=== PATIENT | female | born 1970 | race Caucasian/White ===

== ENCOUNTER 2016-04-17 17:11 | Emergency (ER) | payer MEDICAID ==
[2016-04-17 17:44] VITALS: BP 147/75; PULSE 88; RESP 16; TEMP 97.3; O2SAT 94
--- NOTE | 2016-04-17 18:00 | UCPHY ---
H & P Time Seen by Provider: 04/17/16 17:50 Patient Type: Established HPI/ROS: CHIEF COMPLAINT: Sore throat, cough, fever. HISTORY OF PRESENT ILLNESS: The patient is a 46-year-old female who presents with fever, cough, and sore throat for the past week. She admits associated eye itchiness and reports they are stuck together in the mornings when she wakes up. She has recent sick contact from family members and she did get her flu shot this year. She denies vomiting or other complaints. REVIEW OF SYSTEMS: Aside from elements discussed in the HPI, a comprehensive 10-point review of systems was reviewed and is negative. PAST MEDICAL HISTORY: Denies. SOCIAL HISTORY: Here alone. VITAL SIGNS: Reviewed by me GENERAL: Well-developed, well-nourished, resting comfortably in no respiratory distress. HEENT: Atraumatic. Eyes: No icterus, no injection. Mouth: moist mucous membranes. Oropharyngeal erythema right worse than left. No exudates. No erythema or lesions. Neck: supple with no adenopathy. LUNGS: Clear to auscultation bilaterally, no wheezes, rhonchi or rales. CARDIAC: Regular rate and rhythm, no rubs, murmurs or gallops. ABDOMEN: Soft, nontender, nondistended, bowel sounds normal. BACK: No CVA tenderness. EXTREMITIES: No trauma. No edema. Range of motion is normal throughout. NEURO: Alert and oriented, grossly nonfocal. SKIN: Warm and dry, no rash. PSYCHIATRIC: Normal mentation, no agitation. Portions of this note were transcribed by a medical typist. I personally performed a history, physical exam, medical decision making, and confirmed accuracy of information the transcribed note. Smoking Status: Never smoked Constitutional: Initial Vital Signs Temperature (C) 36.3 C 04/17/16 17:40 Heart Rate 88 04/17/16 17:40 Respiratory Rate 16 04/17/16 17:40 Blood Pressure 147/75 H 04/17/16 17:40 O2 Sat (%) 94 04/17/16 17:40 O2 Delivery Mode Room Air Allergies/Adverse Reactions: promethazine Allergy (Unknown, Verified 04/17/16 17:44) Home Medications: Medication Instructions Recorded Methotrexate Sodium [Methotrexate] 2.5 mg PO Q12 02/18/14 Enbrel 01/23/15 Amoxicillin Trihydrate 500 mg PO TID 7 Days 04/17/16 [Amoxicillin] Benzonatate [Tessalon Pearles (RX)] 100 mg PO TID PRN #20 cap 04/17/16 Citalopram 04/17/16 Medical Decision Making ED Course/Re-evaluation: A strep screen was ordered and returned positive. 8mg PO Decadron administered prior to discharge. - Data Points Laboratory Results: 04/17/16 17:50 Group A Strep Screen POSITIVE H (NEGATIVE) Departure - Departure Disposition: Home, Routine, Self-Care Clinical Impression: Strep throat Condition: Good Instructions: Strep Throat (ED) Additional Instructions: Take 600mg Ibuprofen every 6-8 hours as needed for pain. Try over the counter sore throat remedies such as lozenges. Take the antibiotic as prescribed. Drink plenty of water and be sure to get rest. Call Dr. Arechiga, ENT, in the next 3-4 days if symptoms are not improving. Return for any serious worsening of condition. Referrals: Francia Martinez CNM [Primary Care Provider] - As per Instructions Dany Arechiga MD [Medical Doctor] - As per Instructions Prescriptions: Amoxicillin Trihydrate [Amoxicillin] 500 mg PO TID 7 Days Benzonatate [Tessalon Pearles (RX)] 100 mg PO TID PRN #20 cap PRN Reason: Cough, Mild Report Scribed for: Ena Donohue Report Scribed by: Aly Sweeney Date of Report: 04/17/16 Time of Report: 17:59
[2016-04-17] MEDS ORDERED: DEXAMETHASONE 4 MG TAB PO ONE (18:13)
== END 2016-04-17 18:44 | disposition home or self-care (01) ==
LOC: CED 17:11
DX: J02.0 Streptococcal pharyngitis (principal)
CPT/HCPCS: 87880-PO; G0463-PO

== ENCOUNTER 2016-08-08 15:35 | Emergency (ER) | payer MEDICAID ==
[2016-08-08 15:59] VITALS: BP 135/62; PULSE 74; RESP 18; TEMP 98; O2SAT 97
[2016-08-08] MEDS ORDERED: DEXAMETHASONE 10 MG/ML VIAL PO ONE (16:15)
--- NOTE | 2016-08-08 16:19 | UCPHY ---
H & P Time Seen by Provider: 08/08/16 15:43 Patient Type: Established HPI/ROS: 46-year-old female presents complaining of sore throat for 2 days dates she has also had some cold symptoms and several people in her family have also had sore throats cough and cold. She is able to swallow her own secretions she states she had a Gatorade just prior to arrival. Review of systems As per HPI General no fever no chills no weakness HEENT no eye pain no eye discharge. No eye redness, positive sore throat Respiratory no cough, no shortness of breath Cardiac no chest pain, no peripheral edema GI no abdominal pain, no diarrhea, no constipation, no nausea, no vomiting no flank pain, no hematuria, no dysuria Musculoskeletal no myalgias, no joint pain Heme no easy bruising, no easy bleeding Endo no polyuria, no polydipsia Skin no rashes, no pruritus Neuro no syncope, no dizziness, no headaches Psych is no suicidal ideation, no homicidal ideation Past Medical/Surgical History: Depression Rheumatoid arthritis Social History: Denies alcohol or drug use Smoking Status: Never smoked Physical Exam: 46-year-old female alert and oriented no acute distress nontoxic appearance afebrile Normal voice, tolerating own secretions Alert and oriented in no acute distress nontoxic appearance, afebrile Atraumatic normocephalic Extraocular muscles intact, anicteric Neck-supple, positive anterior cervical lymphadenopathy mildly tender to palpation Oropharynx positive enlarged tonsils, erythematous, no uvular deviation, no purulent exudate, tolerating own secretions, no trismus Lungs clear to auscultation bilaterally Heart regular rate and rhythm Abdomen normoactive bowel sounds soft nontender Extremities no cyanosis clubbing edema Skin no rash Constitutional: Initial Vital Signs Temperature (C) 36.6 C 08/08/16 15:58 Heart Rate 74 08/08/16 15:58 Respiratory Rate 18 08/08/16 15:58 Blood Pressure 135/62 H 08/08/16 15:58 O2 Sat (%) 97 08/08/16 15:58 O2 Delivery Mode Room Air Allergies/Adverse Reactions: promethazine Allergy (Unknown, Verified 04/17/16 17:44) Home Medications: Medication Instructions Recorded Methotrexate Sodium [Methotrexate] 2.5 mg PO Q12 02/18/14 Enbrel 01/23/15 Amoxicillin Trihydrate 500 mg PO TID 7 Days 04/17/16 [Amoxicillin] Benzonatate [Tessalon Pearles (RX)] 100 mg PO TID PRN #20 cap 04/17/16 Citalopram 04/17/16 Clindamycin HCl [Clindamycin] 300 mg PO TID #30 cap 08/08/16 Medical Decision Making ED Course/Re-evaluation: Patient seen and evaluated for sore throat of 2 days duration Differential diagnosis considered Viral pharyngitis, URI, strep pharyngitis Impression Pharyngitis possibly strep Plan Clindamycin Decadron Follow-up PCP - Data Points Laboratory Results: 08/08/16 08/08/16 Unknown 15:50 Group A Strep Screen NEGATIVE (NEGATIVE) Group A Strep DNA Pending Medications Given: Discontinued Medications Dexamethasone (Decadron Injection) 10 mg PO EDNOW ONE Stop: 08/08/16 16:16 Last Admin: 08/08/16 16:27 Dose: 10 mg Departure - Departure Disposition: Home, Routine, Self-Care Clinical Impression: Pharyngitis Condition: Good Instructions: Pharyngitis (ED) Referrals: Francia Martinez NP [Primary Care Provider] - As per Instructions Prescriptions: Clindamycin HCl [Clindamycin] 300 mg PO TID #30 cap - PQRS PQRS Measurement: na
== END 2016-08-08 16:27 | disposition home or self-care (01) ==
LOC: CED 15:35
DX: J02.9 Acute pharyngitis, unspecified (principal)
CPT/HCPCS: 87880-PO; 99214-PO; G0463-PO

== ENCOUNTER 2016-09-06 06:41 | Emergency (ER) | payer MEDICAID ==
[2016-09-06 06:50] VITALS: O2SAT 98
--- NOTE | 2016-09-06 07:21 | EDPHY ---
H & P Time Seen by Provider: 09/06/16 07:09 HPI/ROS: Chief complaint. Can't sleep, anxiety HPI. Patient is a 46-year-old female with history anxiety presents with anxiety he and difficulty sleeping. She has a sick father who lives in [place]. She is concerned about him. She gets too bad and maybe falls asleep for about 10 minutes and then she is awake and thoughts are racing through her mind. She is not ill. No chest discomfort or trouble breathing. No fever. No thoughts of harming herself or others. She has had similar anxiety and insomnia symptoms previously. She has been unable to sleep for the past 4 days because of anxiety ROS Constitutional. no fever/chills, no weakness Eyes. no problems with vision ENT. no sore throat, no nasal drainage Cardiovascular. no chest pain Respiratory. no shortness of breath, no cough Abdominal. no abdominal pain, no nausea/vomiting, no diarrhea . no problems urinating MS. no calf pain/swelling, no neck/back pain, no joint pain Skin. no rash Lymph. no swollen glands Neuro. Anxiety insomnia Past Medical/Surgical History: Rheumatoid arthritis Social History: Single, nonsmoker, no alcohol Smoking Status: Never smoked Physical Exam: General Appearance: Alert, tired appearing well-developed female mild distress. Vital signs are stable Eyes: Pupils equal and round no pallor or injection. ENT, Mouth: Mucous membranes are moist. Respiratory: There are no retractions, lungs are clear to auscultation. Cardiovascular: Regular rate and rhythm. Gastrointestinal: Abdomen is soft and nontender, no masses, bowel sounds normal. Neurological: Awake and alert, sensory and motor exams grossly normal. Skin: Warm and dry, no rashes. Musculoskeletal: Neck is supple nontender. Extremities symmetrical, full range of motion. Psychiatric: Patient is oriented X 3, there is no agitation. Constitutional: Initial Vital Signs Temperature (C) 36.9 C 09/06/16 06:47 Heart Rate 94 09/06/16 06:47 Respiratory Rate 18 09/06/16 06:47 Blood Pressure 157/79 H 09/06/16 06:47 O2 Sat (%) 98 09/06/16 06:47 O2 Delivery Mode Room Air Allergies/Adverse Reactions: promethazine Allergy (Unknown, Verified 04/17/16 17:44) Home Medications: Medication Instructions Recorded Methotrexate Sodium [Methotrexate] 2.5 mg PO Q12 02/18/14 Enbrel 01/23/15 Citalopram 04/17/16 LORazepam [Ativan] 1 mg PO Q6-8PRN PRN #10 tab 09/06/16 Medical Decision Making ED Course/Re-evaluation: Patient remained stable. She and I discussed treatment plan including criteria for return and importance of follow-up and further evaluation. She expresses understanding and agreement Differential Diagnosis: This would certainly be consistent with insomnia and anxiety. Considered concerns for illness including fever, coronary syndrome, causes of dyspnea. I considered concerns for suicidal or homicidal ideation Departure - Departure Disposition: Home, Routine, Self-Care Clinical Impression: Anxiety Condition: Good Instructions: Anxiety (ED) Additional Instructions: Ativan to help you relax and help you sleep. Return for worsening symptoms. Follow up with Francia Martinez next week [facility] to discuss further medication. Referrals: [facility] [Outside] - As per Instructions Prescriptions: LORazepam [Ativan] 1 mg PO Q6-8PRN PRN #10 tab PRN Reason: Sleep/Insomnia
[2016-09-06 11:31] VITALS: BP 139/85; PULSE 100; RESP 16; TEMP 97.9
--- NOTE | 2016-09-06 11:56 | EDPHY ---
ED Progress Note Narrative: Patient returns as she has used 2 Ativan today and still has been unable to sleep. She was seen this morning by me and prescribed the Ativan for anxiety and insomnia. She and I discussed using the Ativan for anxiety and I will prescribe Ambien for sleep. She knows not to use them both together. The exam and vital signs and history are unchanged from earlier today. Please see that chart for reference
== END 2016-09-06 07:23 | disposition home or self-care (01) ==
LOC: CED 06:41
DX: F41.9 Anxiety disorder, unspecified (principal)

== ENCOUNTER 2016-09-09 04:09 | Emergency (ER) | payer MEDICAID ==
[2016-09-09 04:16] VITALS: BP 126/61; PULSE 94; RESP 18; TEMP 97.2; O2SAT 99
[2016-09-09] MEDS ORDERED: KETOROLAC 30 MG/1 ML SDV IM ONE (04:47)
[2016-09-09] MEDS ORDERED: ACETAMINOPHEN 325 MG TAB PO ONE (04:47)
[2016-09-09] MEDS ORDERED: ACETAMINOPHEN 500 MG TAB ONE (04:53)
--- NOTE | 2016-09-09 04:53 | EDPHY ---
H & P HPI/ROS: This 46-year-old female with past medical history of rheumatoid arthritis, anxiety, migraine headaches, chronic back pain, and recent visits for anxiety presents to the emergency room tonjeffry complaining of left thigh pain. She states that it started at 4:30 p.m. yesterday afternoon. She describes it as a sharp pain and constant. It started out at 7/10 and went as high as 10/10. The pain is so severe that it makes her nauseated. It is worse with walking. She took a hot bath tried a heating pad without relief. She tried ibuprofen last evening without any relief. She states she has had no prior episodes of discomfort of this sort. She states the only thing she can think of is she was bending over to play with her grandkids but does not remember any specific trauma. She denies back pain, abdominal pain, dysuria or vaginal discharge. No diarrhea but admits to mild constipation. She has not felt any lumps in her groin. She does not have a rash. She denies numbness, tingling, saddle anesthesia, foot drop, fever, or IV drug use. She saw her primary care provider last week for a checkup and numbness in her fingers. She states her primary told her the finger numbness was her arthritis. When asked if she mentioned her anxiety to her primary care provider she said she had and her provider told her to meditate. She subsequently came to the emergency room on two separate visits on September 06 for anxiety and insomnia. She was given Ambien and Ativan. She states she is no longer taking the Ativan but did take an Ambien last evening at 8:30 p.m.. At first she denied taking any other medications but when I reviewed prior medications with her she admits to taking methotrexate 2.5 mg every Saturday and Enbrel every Saturday. She takes citalopram daily as well. She denies any other recent illnesses. She was driven here today by her boyfriend who was waiting for her in the [employer]. She states she is not and the first day of her last menstrual period was two days ago. She is 5 para 5. Past Medical/Surgical History: PMH: Rheumatoid arthritis, anxiety, cough, lumbar strain, chronic back pain, migraines, pharyngitis, upper respiratory infection, hypertension with PSH: Cholecystectomy umbilical hernia FH: States her mother and father have no medical issues She is 5 para 5 First day last menstrual period 2 days ago Smoking Status: Never smoked (She denies alcohol use or marijuana or other illicit drugs; she denies any history of IV drug abuse) Physical Exam: Gen: Alert and oriented x3, restless, in moderate discomfort - lying on cot bouncing her left leg up and down. Skin: Warm, dry, normal for ethnicity, no rashes. HEENT: Normocephalic, atraumatic come pupils equally round and reactive to light and accommodation, extraocular movements intact, oropharynx with moist mucosa, no erythema or exudate. Neck: Supple, no tenderness. Cardiovascular: Regular rate and rhythm, no murmurs, gallops, or rubs, normal peripheral perfusion, no edema. Pulmonary: Lungs clear to auscultation bilaterally, no rales, rhonchi or wheezing. Abdomen: soft, nontender, nondistended, normal bowel sounds, no masses. Back: No midline tenderness of the thoracic or lumbar spine; normal alignment, no bony step-offs. Extremities: Moves all extremities well. Discomfort with palpation of the left groin area without any evidence of hernia with continued discomfort with palpation of the left anterior thigh to the left knee. No bony abnormalities noted. No sign of deep vein thrombosis. No cellulitis. Neurologic: Gait normal. Strength equal all 4 extremities, DTRs normal bilateral patella, no footdrop, sensory intact and equal bilateral lower extremities. Constitutional: Initial Vital Signs Temperature (C) 97.2 F 09/09/16 04:12 Heart Rate 94 09/09/16 04:12 Respiratory Rate 18 09/09/16 04:12 Blood Pressure 126/61 H 09/09/16 04:12 O2 Sat (%) 99 09/09/16 04:12 O2 Delivery Mode Room Air Allergies/Adverse Reactions: promethazine Allergy (Unknown, Verified 04/17/16 17:44) Home Medications: Medication Instructions Recorded Methotrexate Sodium [Methotrexate] 2.5 mg PO Q12 02/18/14 Enbrel 01/23/15 Citalopram 04/17/16 LORazepam [Ativan] 1 mg PO Q6-8PRN PRN #10 tab 09/06/16 Zolpidem Tartrate [Ambien 10 mg] 10 mg PO HS PRN #7 tablet 09/06/16 Medical Decision Making - Diagnostics Imaging Results: No acute bony abnormality seen of the left hip/pelvis or left knee. Imaging: I viewed and interpreted images myself ED Course/Re-evaluation: The patient was seen and examined. Vital signs reviewed. Prior records were reviewed. She was given Toradol 30 mg IM and Tylenol 1000 mg orally for her discomfort. This did nothing for her pain. She states her anterior left thigh pain is still 10/10. X-rays of the left hip and left knee are unremarkable. Two 5% Lidocaine patches were placed to her anterior left thigh. I advised the patient that I would not be prescribing narcotics. She should continue with gentle stretching, warm baths or compresses, acetaminophen, an occasion regular strength ibuprofen, OTC lidocaine patches, electrolyte replacement drinks. She stated earlier that she has an appointment with her PCP, Francia Martinez at [facility], this week. She was advised to return to the ER if fever, rash, numbness, tingling, saddle anesthesia, foot drop or any other concerns. Differential Diagnosis: Includes but is not limited to: Arthritis, Referred pain from hip or knee, Muscle strain, Anxiety, Restless Leg Syndrome, Narcotic seeking. No evidence of Sciatica, Herniated Disc, Cauda Equina Syndrome, Epidural Abscess, Rhabdomyolysis, Hernia, DVT, Cellulitis, Abdominal pathology or reason for electrolyte abnormality. - Data Points Medications Given: Discontinued Medications Acetaminophen (Tylenol) 1,000 mg PO EDNOW ONE Stop: 09/09/16 04:48 Last Admin: 09/09/16 04:56 Dose: 1,000 mg Ketorolac Tromethamine (Toradol) 30 mg IM EDNOW ONE Stop: 09/09/16 04:48 Last Admin: 09/09/16 04:56 Dose: 30 mg Lidocaine (Lidoderm 5%) 2 ea TD EDNOW ONE Stop: 09/09/16 05:31 Last Admin: 09/09/16 05:30 Dose: 2 ea Departure - Departure Disposition: Home, Routine, Self-Care Clinical Impression: Musculoskeletal thigh pain Condition: Fair Instructions: Lidocaine Patch (On the skin), Musculoskeletal Pain (ED) Additional Instructions: Remove the lidocaine patches after 12 hours. Continue with gentle stretching, warm baths or compresses, acetaminophen, an occasion regular strength ibuprofen , [id number] lidocaine patches as directed, electrolyte replacement drinks , gentle massage. Talk to Dr. Martinez about your thigh pain at your appointment this week. Return to the ER sooner if fever, rash, numbness, tingling, saddle anesthesia (numbness in the groin region), foot drop or any other concerns. Referrals: Francia Martinez, JAMIE [Non Staff and Non MD] - As per Instructions JESUS GAVIN,. [Clinic] - As per Instructions
[2016-09-09] MEDS ORDERED: LIDOCAINE 5% 1 EA PATCH TD ONE ×2 (05:29→05:30)
[2016-09-09] MEDS ORDERED: PATCH REMOVAL 1 EA PATCH TD SCH (21:00)
== END 2016-09-09 05:51 | disposition home or self-care (01) ==
LOC: CED 04:09
DX: M79.652 Pain in left thigh (principal)
CPT/HCPCS: 73502-PO; 73562-PO; J1885

== ENCOUNTER 2016-10-14 05:34 | Emergency (ER) | payer MEDICAID ==
--- NOTE | 2016-10-14 05:36 | EDPHY ---
H & P HPI/ROS: HPI CHIEF COMPLAINT: Anxiety HISTORY OF PRESENT ILLNESS: This patient 46-year-old female, significant past medical history for rheumatoid arthritis, anxiety, chronic back pain, insomnia, and multiple ER visits for anxiety. I did review her most recent ER visit for acute anxiety and thigh pain. Patient tells me she decided come the emergency room as she has been up all night with anxiety and insomnia. She typically takes Ambien each night however Ambien did not help her sleep tonight. She states that she has been having trouble getting getting to sleep. This been causing her anxiety. At times he has racing thoughts. She denies any chest pain or shortness of breath she denies any abdominal pain or any focal pain. She denies any numbness or tingling. She denies hyperventilating. She denies want hurt herself or anybody else. She states over the last 6 months her anxiety is been getting worse she has seen her primary care doctor 1 time that recommend she medicates however she has been in the emergency room multiple times for anxiety. Here in the emergency room she appears well nontoxic normal vital signs. 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 I also recommend that she follows up with her primary care doctor. Past Medical History: Rheumatoid arthritis, anxiety, chronic back pain, insomnia Past Surgical History: Denies recent surgery Social History: Denies daily use of drugs alcohol tobacco lives in [place], [facility] Family History: Noncontributory ROS REVIEW OF SYSTEMS: A comprehensive 10 point review of systems is otherwise negative aside from elements mentioned in the history of present illness. Exam Constitutional appears well nontoxic, triage nursing summary reviewed, vital signs reviewed, awake/alert. Eyes normal conjunctivae and sclera, EOMI, PERRLA. HENT normal inspection, atraumatic, moist mucus membranes, no epistaxis, neck supple/ no meningismus, no raccoon eyes. Respiratory clear to auscultation bilaterally, normal breath sounds, no respiratory distress, no wheezing. Cardiovascular rate normal, regular rhythm, no murmur, no edema, distal pulses normal. Gastrointestinal soft, non-tender, no rebound, no guarding, normal bowel sounds, no distension, no pulsatile mass. Genitourinary no CVA tenderness. Musculoskeletal no midline vertebral tenderness, full range of motion, no calf swelling, no tenderness of extremities, no meningismus, good pulses, neurovascularly intact. Skin pink, warm, & dry, no rash, skin atraumatic. Neurologic awake, alert and oriented x 3, AAOx3, moves all 4 extremities equally, motor intact, sensory intact, CN II-XII intact, normal cerebellar, normal vision, normal speech. Psychiatric normal mood/affect. Heme/Lymph/Immune no lymphadenopathy. Differential Diagnosis: Includes but is not limited to in a particular order acute anxiety, insomnia, insomnia leading to anxiety, panic attack. Medical Decision Making: Plan for this patient she appears well nontoxic no hyperventilating does not appear acutely anxious here in emergency room will give her dose of Benadryl here. I explained I do not recommend that she start on benzodiazepines or narcotics. I do recommend that she follows up with her primary care doctor on outpatient basis for anxiety. She may be a patient benefit from a low-dose antidepressant can help with her sleep, and anxiety. [id number]: At this time the patient has declined Benadryl. She tells me that gives her headaches. She initially was agreeable to taking Benadryl however now is decline. I still do recommend follow up with the primary care doctor. This time she is resting comfortably does not appear anxious. Safe for discharge. Vital signs are stable. No other complaints. Source: Patient - Personal History Tetanus Vaccine Date: unsure - Medical/Surgical History Hx Asthma: No Hx Chronic Respiratory Disease: No Hx Diabetes: No Hx Cardiac Disease: No Hx Renal Disease: No Hx Cirrhosis: No Hx Alcoholism: No Hx HIV/AIDS: No Hx Splenectomy or Spleen Trauma: No Other PMH: MALU [facility]. FLu . Tetanus utd. Rheumatoid Arthritis. Denies Surgeries. - Social History Smoking Status: Never smoked (She denies alcohol use or marijuana or other illicit drugs; she denies any history of IV drug abuse) Constitutional: Initial Vital Signs Temperature (C) 36.6 C 10/14/16 05:45 Heart Rate 88 10/14/16 05:45 Respiratory Rate 16 10/14/16 05:45 Blood Pressure 164/88 H 10/14/16 05:45 O2 Sat (%) 99 10/14/16 05:45 O2 Delivery Mode Room Air Allergies/Adverse Reactions: promethazine Allergy (Unknown, Verified 10/14/16 05:44) Home Medications: Medication Instructions Recorded Methotrexate Sodium [Methotrexate] 2.5 mg PO Q12 02/18/14 Enbrel 01/23/15 Zolpidem Tartrate [Ambien 10 mg] 10 mg PO HS PRN #7 tablet 09/06/16 Medical Decision Making - Data Points Medications Given: Discontinued Medications Diphenhydramine HCl (Benadryl) 25 mg PO EDNOW ONE Stop: 10/14/16 05:44 Last Admin: 10/14/16 05:53 Dose: Not Given Departure - Departure Disposition: Home, Routine, Self-Care Clinical Impression: Anxiety Condition: Good Instructions: Anxiety (ED) Additional Instructions: 1. Stay well-hydrated. 2. Rest. 3. Follow up with her primary care doctor about your anxiety and insomnia. Referrals: Patient,NotPresent [Unknown] - As per Instructions
[2016-10-14] MEDS: diphenhydrAMINE 25 MG CAP PO ONE ×2 (05:49→05:53)
[2016-10-14 05:51] VITALS: BP 164/88; PULSE 88; RESP 16; TEMP 97.9; O2SAT 99
== END 2016-10-14 06:02 | disposition home or self-care (01) ==
LOC: CED 05:34
DX: F41.9 Anxiety disorder, unspecified (principal)

== ENCOUNTER 2016-10-14 16:49 | Emergency (ER) | payer MEDICAID ==
[2016-10-14 17:04] VITALS: BP 123/88; PULSE 86; RESP 16; TEMP 97.2; O2SAT 99
--- NOTE | 2016-10-14 17:17 | EDPHY ---
H & P Stated Complaint: anxiety, took benadryl x2 with no help. Cant sleep Time Seen by Provider: 10/14/16 17:03 HPI/ROS: CHIEF COMPLAINT: Anxiety HISTORY OF PRESENT ILLNESS: The patient is a 46-year-old female with history of anxiety who is suffering from insomnia after her brother's on Saturday. She will not be able to make it to the in [place]. She states that she did not sleep at all last night. She was seen here early this morning was given Benadryl. She states that she slept for about 2 hours but has not amenable to sleep since. She is very antsy. Her vital signs are stable. She does not take anxiety medication daily and usually does not suffer from it. She has an appointment with her primary doctor Francia Martinez on but cannot get in to see them before that. She denies any recent drug or alcohol use. REVIEW OF SYSTEMS: Constitutional: denies: chills, fever, recent illness, recent injury EENTM: denies: blurred vision, double vision, nose congestion Respiratory: denies: cough, shortness of breath Cardiac: denies: chest pain, irregular heart rate, lightheadedness, palpitations Gastrointestinal/Abdominal: denies: abdominal pain, diarrhea, nausea, vomiting, blood streaked stools Genitourinary: denies: dysuria, frequency, hematuria, pain Musculoskeletal: denies: joint pain, muscle pain Skin: denies: lesions, rash, jaundice, bruising Neurological: denies: headache, numbness, paresthesia, tingling, dizziness, weakness Hematologic/Lymphatic: denies: blood clots, easy bleeding, easy bruising Immunologic/allergic: denies: HIV/AIDS, transplant EXAM: GENERAL: Well-appearing, well-nourished and in no acute distress. HEAD: Atraumatic, normocephalic. EYES: Pupils equal round and reactive to light, extraocular movements intact, sclera anicteric, conjunctiva are normal. ENT: TMs normal, nares patent, oropharynx clear without exudates. Moist mucous membranes. NECK: Normal range of motion, supple without lymphadenopathy or JVD. LUNGS: Breath sounds clear to auscultation bilaterally and equal. No wheezes rales or rhonchi. HEART: Regular rate and rhythm without murmurs, rubs or gallops. ABDOMEN: Soft, nontender, normoactive bowel sounds. No guarding, no rebound. No masses appreciated. BACK: No CVA tenderness, no spinal tenderness, step-offs or deformities EXTREMITIES: Normal range of motion, no pitting or edema. No clubbing or cyanosis. NEUROLOGICAL: Cranial nerves II through XII grossly intact. Normal speech, normal gait. 5/5 strength, normal movement in all extremities, normal sensation PSYCH: Anxious, tearful no suicidal ideation SKIN: Warm, dry, normal turgor, no visible rashes or lesions. Source: Patient Exam Limitations: No limitations - Personal History LMP (Females 10-55): 1-7 Days Ago Tetanus Vaccine Date: unsure - Medical/Surgical History Hx Asthma: No Hx Chronic Respiratory Disease: No Hx Diabetes: No Hx Cardiac Disease: No Hx Renal Disease: No Hx Cirrhosis: No Hx Alcoholism: No Hx HIV/AIDS: No Hx Splenectomy or Spleen Trauma: No Other PMH: MALU [place]. FLu . Tetanus utd. Rheumatoid Arthritis. Denies Surgeries. - Family History Significant Family History: No pertinent family hx - Social History Smoking Status: Never smoked Alcohol Use: Sober Drug Use: None Constitutional: Initial Vital Signs Temperature (C) 36.2 C 10/14/16 17:02 Heart Rate 86 10/14/16 17:02 Respiratory Rate 16 10/14/16 17:02 Blood Pressure 123/88 H 10/14/16 17:02 O2 Sat (%) 99 10/14/16 17:02 O2 Delivery Mode Room Air Allergies/Adverse Reactions: promethazine Allergy (Unknown, Verified 10/14/16 17:01) Home Medications: Medication Instructions Recorded Methotrexate Sodium [Methotrexate] 2.5 mg PO Q12 02/18/14 Enbrel 01/23/15 Zolpidem Tartrate [Ambien 10 mg] 10 mg PO HS PRN #7 tablet 09/06/16 LORazepam [Ativan 1 mg (RX)] 1 mg PO Q6-8PRN PRN #7 tab 10/14/16 Medical Decision Making ED Course/Re-evaluation: Patient is a 46-year-old female with a history of situational anxiety and insomnia is here requesting Ativan to help her sleep. She has tried taking Ambien in the past without success. She will follow up with her primary on . She has tried Benadryl without success. I will give her a small prescription for Ativan but advised her that it should only be taken for a couple of days because then it will cause dependence. Patient understands and agrees with this plan. She declines further workup or testing at this time. Differential Diagnosis: Partial list of the Differential diagnosis considered include but were not limited to; anxiety, depression and although unlikely based on the history and physical exam, I also considered suicidality, infection. I discussed these differential diagnoses and the plan with the patient as well as the usual and expected course. The patient understands that the diagnosis is provisional and that in medicine we are not always correct and that further workup is often warranted. Usual and customary warnings were given. All of the patient's questions were answered. The patient was instructed to return to the emergency department should the symptoms at all worsen or return, otherwise to followup with the physician as we discussed. Departure - Departure Disposition: Home, Routine, Self-Care Clinical Impression: Anxiety Condition: Fair Instructions: Anxiety (ED) Referrals: Francia Martinez NP [Primary Care Provider] - As per Instructions Prescriptions: LORazepam [Ativan 1 mg (RX)] 1 mg PO Q6-8PRN PRN #7 tab PRN Reason: *Anxiety/Agitation/Insomnia
== END 2016-10-14 17:19 | disposition home or self-care (01) ==
LOC: CED 16:49
DX: F41.9 Anxiety disorder, unspecified (principal)

== ENCOUNTER 2016-11-07 15:46 | Emergency (ER) | payer MEDICAID ==
[2016-11-07 16:00] VITALS: TEMP 98.1
[2016-11-07] MEDS ORDERED: NS 1,000 ML IV ONE (16:02)
[2016-11-07] MEDS ORDERED: DIAZEPAM 10 MG/2 ML SYR IVP ONE (16:05)
--- NOTE | 2016-11-07 16:05 | CPEKG ---
Heart Rate: 76 RR Interval: 789 P-R Interval: 128 QRSD Interval: 94 QT Interval: 460 QTC Interval: 518 P [place]: 69 QRS [place]: 45 T Wave [place]: -21 EKG Severity - ABNORMAL ECG - EKG Impression: SINUS RHYTHM EKG Impression: BORDERLINE T ABNORMALITIES, INFERIOR LEADS EKG Impression: PROLONGED QT INTERVAL Electronically Signed By: Jacque Huynh 07-Nov-2016 16:18:48
[2016-11-07] MEDS ORDERED: ONDANSETRON 4 MG/2 ML VIAL IVP ONE (16:07)
[2016-11-07 16:11] LABS: % IMMATURE GRANULYOCYTES 0.2 % (0.0-1.1); ABSOLUTE IMMATURE GRANULOCYTES 0.01 10^3/uL (0.00-0.10); ADD DIFF? NO; ADD MORPH? YES; ADD SCAN? NO; ATYPICAL LYMPHOCYTE FLAG 20 (0-99); FRAGMENT RBC FLAG 80 (0-99); HEMATOCRIT 37.7 % (38.0-47.0); HEMOGLOBIN 12.1 g/dL (12.6-16.3); LEFT SHIFT FLG 0 (0-99); LIPEMIA HEMOLYSIS FLAG 80 (0-99); MEAN CELL HEMOGLOBIN 23.3 pg (27.9-34.1); MEAN CELL HEMOGLOBIN CONCENTR. 32.1 g/dL (32.4-36.7); MEAN CELL VOLUME 72.6 fL (81.5-99.8); MEAN PLATELET VOLUME 9.8 fL (8.7-11.7); PLATELET CLUMPS FLAG 0 (0-99); PLATELET COUNT 552 10^3/uL (150-400); RED BLOOD CELL COUNT 5.19 10^6/uL (4.18-5.33)
[2016-11-07 16:12] LABS: RED CELL DISTRIBUTION WIDTH 24.8 % (11.5-15.2)
--- NOTE | 2016-11-07 16:15 | EDPHY ---
H & P Time Seen by Provider: 11/07/16 15:56 HPI/ROS: HPI Back pain, nausea vomiting, chest pain. 46-year-old female by private vehicle. She is familiar to our emergency department. Last visit was on October 14 of this year. Multiple visits prior to that. She has a history of anxiety as well as rheumatoid arthritis. She reports that since last night she has had some nausea and she has had 2-3 episodes of nonbilious and nonbloody vomiting. She reports as of about 5 hours ago she developed lower back pain which she describes on the sides of her spine in the lower back. She describes this pain as sharp. Denies radiation of the pain. She has had no loss of sensation or weakness in her extremities. No bowel or bladder incontinence. No fever. She has no history of IV drug abuse. There is no history of trauma. She also states that when her back pain started in her lower back she also developed mid substernal chest discomfort. She describes this as a cramping sensation. She reports that it is better now. She is currently finishing her menstruation. ROS: Constitutional: No fever, no chills. As above. Eyes: No discharge. No changes in vision. ENT: No sore throat. No nasal congestion or rhinorrhea. Respiratory: No cough. No shortness of breath. Cardiac: As above, no palpitations. Gastrointestinal: No abdominal pain, as above, no diarrhea. Genitourinary: No hematuria. No dysuria or increased frequency with urination. Musculoskeletal: As above. No neck pain. No myalgias or arthralgias. Skin: No rashes. Neurological: No headache. No focal weakness or altered sensation. Past medical history: Cholecystectomy, rheumatoid arthritis, anxiety. [facility]. Social history: Denies IV drugs or street drug use. No smoking. No alcohol. Physical Exam: General Appearance: Alert, anxious. This patient is responding to questions appropriately and in full sentences. This patient appears well-hydrated and well-nourished. Eyes: Pupils equal and round no pallor or injection. No lid edema, erythema or injection. Back exam: No midline cervical, thoracic, lumbar tenderness on palpation. She has bilateral paraspinal tenderness on palpation of the lumbar spine. This is vague. No soft tissue associated swelling, ecchymosis, warmth, erythema. She has a negative same side and cross side straight leg raise test. She is neurologically intact in all myotomes in dermatomes of the bilateral lower extremities. Respiratory: There are no retractions, lungs are clear to auscultation with good air movement bilaterally. Cardiovascular: Regular rate and rhythm. No murmur. Gastrointestinal: Abdomen is soft and nontender, no masses, bowel sounds normal. No focal tenderness at McBurney's point. No Staples sign. Neurological: Motor sensory function is grossly intact. Cranial nerves are normal. Gait is normal. Skin: Warm and dry, no rashes. Musculoskeletal: Neck is supple and nontender. No pain on flexion of her neck. Extremities are symmetrical. All joints range without pain or impingement. Psychiatric: No agitation. No depression. Database: EKG: EKG time is. 4:03 p.m.; EKG shows a narrow complex normal sinus rhythm with a ventricular rate of 76. The ID, QRS, intervals are within normal limits. QT interval is borderline prolonged. There are no ST-T wave changes indicative of ischemic or injury pattern. Borderline T-wave abnormalities in the inferior leads. No evidence of right heart strain. Interpreted by me. Imaging: Chest x-ray AP portable; the cardiac mediastinal silhouette is unremarkable. No evidence of infiltrate or pneumothorax. No acute cardiopulmonary disease process noted. Interpreted by me. Procedures: Emergency department course: IV placed. She was placed on a ui ux developer. She was started on IV normal saline with 500 cc to 1 L to be given over the next hour. She was initially given 5 mg of IV Valium for her anxiety and 4 mg of IV Zofran. Vital signs reviewed. She is moderately hypertensive. Vital signs are otherwise normal. She is afebrile. 5:00 p.m.. Vital signs reviewed and are normal. Blood pressure 123/73. She is feeling better but is asking for more pain medication for back pain. She was given 2 [place] tablets. She does have somebody coming to pick her up. Urinalysis shows some blood but is otherwise unremarkable. She is finishing her menstruation. Her presentation is not consistent with ureterolithiasis. 5:30 p.m., patient re-evaluated. She is resting comfortably now. She feels better after above medications. Repeat abdominal exam she is soft, nontender nondistended. Repeat neurologic Assessment is nonfocal. She is able to get out of her gurney under her own power and ambulate without difficulty. Results of her diagnostic tests were discussed. These results are reassuring. I feel that acute coronary syndrome is unlikely. Her lipase was mildly elevated but she does not have significant abdominal pain. She is feeling better now. She is tolerating oral liquids. Her back pain is decreased significantly. There were no red flags on her exam. She feels comfortable going home and I feel she is safe for discharge. Follow-up and return to emergency department precautions reviewed with her. All of her questions were answered. She was discharged in good condition. Differential Diagnosis: The differential diagnosis on this patient includes but is not limited to stress reaction, anxiety reaction, lower back pain without red flags, noncardiac chest pain. Acute coronary syndrome, pulmonary embolism, aortic dissection, abdominal aortic aneurysm, epidural abscess, spinal fracture/ subluxation, appendicitis, bowel obstruction, other surgical cause of abdominal pain unlikely. This represents a partial list of diagnoses considered. These considerations are based on history, physical exam, past history, reassessment and diagnostic testing. Smoking Status: Never smoked Constitutional: Initial Vital Signs Temperature (C) 36.7 C 11/07/16 15:48 Heart Rate 86 11/07/16 15:48 Respiratory Rate 20 11/07/16 15:48 Blood Pressure 161/97 H 11/07/16 15:48 O2 Sat (%) 99 11/07/16 15:48 O2 Delivery Mode Room Air Allergies/Adverse Reactions: promethazine Allergy (Unknown, Verified 11/07/16 15:51) Home Medications: Medication Instructions Recorded Methotrexate Sodium [Methotrexate] 2.5 mg PO Q12 02/18/14 Enbrel 01/23/15 Zolpidem Tartrate [Ambien 10 mg] 10 mg PO HS PRN #7 tablet 09/06/16 LORazepam [Ativan 1 mg (RX)] 1 mg PO Q6-8PRN PRN #7 tab 10/14/16 Citalopram 11/07/16 Medical Decision Making - Diagnostics Imaging Results: Imaging Impressions Chest X-Ray 11/07/16 16:03 Impression: Nothing acute identified. - Data Points Laboratory Results: Laboratory Results 11/07/16 16:00 11/07/16 16:00 11/07/16 11/07/16 11/07/16 16:55 16:00 16:00 WBC Cancelled RBC Cancelled Hgb Cancelled Hct Cancelled MCV Cancelled MCH Cancelled MCHC Cancelled RDW Cancelled Plt Count Cancelled MPV Cancelled Neut % (Auto) Cancelled Lymph % (Auto) Cancelled Travis % (Auto) Cancelled Eos % (Auto) Cancelled Baso % (Auto) Cancelled Nucleat RBC Rel Count Cancelled Absolute Neuts (auto) Cancelled Absolute Lymphs (auto) Cancelled Absolute Monos (auto) Cancelled Absolute Eos (auto) Cancelled Absolute Basos (auto) Cancelled Absolute Nucleated RBC Cancelled Immature Gran % Cancelled Immature Gran # Cancelled Platelet Estimate Hypochromasia Microcytic Cells Sodium Potassium Chloride Carbon Dioxide Anion Gap BUN Creatinine Estimated GFR Glucose Calcium Total Bilirubin Conjugated Bilirubin Unconjugated Bilirubin AST ALT Alkaline Phosphatase Troponin I Total Protein Albumin Lipase Beta HCG, Qual NEGATIVE Urine Color YELLOW Urine Appearance HAZY Urine pH 7.5 (5.0-7.5) Ur Specific [place] 1.010 (1.002-1.030) Urine Protein TRACE H (NEGATIVE) Urine Ketones 2+ H (NEGATIVE) Urine Blood 3+ H (NEGATIVE) Urine Nitrate NEGATIVE (NEGATIVE) Urine Bilirubin NEGATIVE (NEGATIVE) Urine Urobilinogen 0.2 EU EU (0.2-1.0) Ur Leukocyte Esterase NEGATIVE (NEGATIVE) Urine RBC 15-25 /hpf H /hpf (0-3) Urine WBC OCCASIONAL /hpf /hpf (0-3) Ur Epithelial Cells 2+ /lpf H /lpf (NONE-1+) Urine Bacteria 1+ /hpf H /hpf (NONE SEEN) Urine Mucus 1+ /lpf /lpf (NONE-1+) Urine Glucose NEGATIVE (NEGATIVE) 11/07/16 11/07/16 16:00 16:00 WBC 4.45 10^3/uL 10^3/uL (3.80-9.50) RBC 5.19 10^6/uL 10^6/uL (4.18-5.33) Hgb 12.1 g/dL L g/dL (12.6-16.3) Hct 37.7 % L % (38.0-47.0) MCV 72.6 fL L fL (81.5-99.8) MCH 23.3 pg L pg (27.9-34.1) MCHC 32.1 g/dL L g/dL (32.4-36.7) RDW 24.8 % H % (11.5-15.2) Plt Count 552 10^3/uL H 10^3/uL (150-400) MPV 9.8 fL fL (8.7-11.7) Neut % (Auto) 60.5 % % (39.3-74.2) Lymph % (Auto) 28.8 % % (15.0-45.0) Travis % (Auto) 9.9 % % (4.5-13.0) Eos % (Auto) 0.2 % L % (0.6-7.6) Baso % (Auto) 0.4 % % (0.3-1.7) Nucleat RBC Rel Count 0.0 % % (0.0-0.2) Absolute Neuts (auto) 2.69 10^3/uL 10^3/uL (1.70-6.50) Absolute Lymphs (auto) 1.28 10^3/uL 10^3/uL (1.00-3.00) Absolute Monos (auto) 0.44 10^3/uL 10^3/uL (0.30-0.80) Absolute Eos (auto) 0.01 10^3/uL L 10^3/uL (0.03-0.40) Absolute Basos (auto) 0.02 10^3/uL 10^3/uL (0.02-0.10) Absolute Nucleated RBC 0.00 10^3/uL 10^3/uL (0-0.01) Immature Gran % 0.2 % % (0.0-1.1) Immature Gran # 0.01 10^3/uL 10^3/uL (0.00-0.10) Platelet Estimate INCREASED H (ADEQ) Hypochromasia 2+ H Microcytic Cells 2+ H Sodium 142 mEq/L mEq/L (134-144) Potassium 3.1 mEq/L L mEq/L (3.5-5.2) Chloride 105 mEq/L mEq/L (97-110) Carbon Dioxide 20 mEq/l L mEq/l (22-31) Anion Gap 17 mEq/L H mEq/L (8-16) BUN 10 mg/dL mg/dL (7-23) Creatinine 0.8 mg/dL mg/dL (0.6-1.0) Estimated GFR > 60 Glucose 121 mg/dL H mg/dL (70-100) Calcium 10.0 mg/dL mg/dL (8.5-10.4) Total Bilirubin 0.5 mg/dL mg/dL (0.1-1.4) Conjugated Bilirubin 0.3 mg/dL mg/dL (0.0-0.5) Unconjugated Bilirubin 0.2 mg/dL mg/dL (0.0-1.1) AST 34 IU/L IU/L (14-46) ALT 32 IU/L IU/L (9-52) Alkaline Phosphatase 84 IU/L IU/L (38-126) Troponin I < 0.012 ng/mL ng/mL (0-0.034) Total Protein 8.3 g/dL H g/dL (6.3-8.2) Albumin 4.6 g/dL g/dL (3.5-5.0) Lipase 329.0 IU/L H IU/L (23-300) Beta HCG, Qual Urine Color Urine Appearance Urine pH Ur Specific [place] Urine Protein Urine Ketones Urine Blood Urine Nitrate Urine Bilirubin Urine Urobilinogen Ur Leukocyte Esterase Urine RBC Urine WBC Ur Epithelial Cells Urine Bacteria Urine Mucus Urine Glucose Medications Given: Discontinued Medications Diazepam (Valium Injection) 5 mg IVP EDNOW ONE Stop: 11/07/16 16:06 Last Admin: 11/07/16 16:22 Dose: 5 mg Sodium Chloride (Ns) 1,000 mls @ 0 mls/hr IV EDNOW ONE; Wide Open PRN Reason: Protocol Stop: 11/07/16 16:03 Last Admin: 11/07/16 16:10 Dose: 1,000 mls Ondansetron HCl (Zofran) 4 mg IVP EDNOW ONE Stop: 11/07/16 16:08 Last Admin: 11/07/16 16:21 Dose: 4 mg Departure - Departure Disposition: Home, Routine, Self-Care Clinical Impression: Lower back pain, Nausea and vomiting, Anxiety, Chest discomfort Condition: Good Instructions: Acute Nausea and Vomiting (ED), Back Pain (ED), Noncardiac Chest Pain (ED) Additional Instructions: Read and follow provided instructions. Follow-up with your primary care physician tomorrow for re-evaluation as discussed Ibuprofen dosin mg every 6 hours with meals for the next 3 days only. Return to the emergency department for worsening symptoms, worsening pain, difficulty breathing, loss of sensation or weakness in your legs, bowel or bladder incontinence, fever, abdominal pain, vomiting and inability to keep fluids down despite medications or other serious concerns. Referrals: NONE *PRIMARY CARE P,. [Primary Care Provider] - As per Instructions
[2016-11-07 16:25] LABS: HYPOCHROMIA 2+; MICROCYTES 2+; PLATELET ESTIMATE INCREASED (ADEQ)
[2016-11-07 16:27] VITALS: RESP 16
[2016-11-07 16:31] LABS: ALANINE AMINOTRANSFERASE 32 IU/L (9-52); ALBUMIN 4.6 g/dL (3.5-5.0); ALKALINE PHOSPHATASE 84 IU/L (38-126); ANION GAP 17 mEq/L (8-16); ASPARTATE AMINOTRANSFERASE 34 IU/L (14-46); BILIRUBIN,TOTAL 0.5 mg/dL (0.1-1.4); BILIRUBIN-CONJUGATED 0.3 mg/dL (0.0-0.5); BILIRUBIN-UNCONJUGATED 0.2 mg/dL (0.0-1.1); CARBON DIOXIDE 20 mEq/l (22-31); CHLORIDE 105 mEq/L (97-110); CREATININE 0.8 mg/dL (0.6-1.0); GLOMERULAR FILTRATION RATE > 60; GLUCOSE 121 mg/dL (70-100); POTASSIUM 3.1 mEq/L (3.5-5.2); SODIUM 142 mEq/L (134-144); TOTAL PROTEIN 8.3 g/dL (6.3-8.2)
[2016-11-07 16:36] LABS: TROPONIN I < 0.012 ng/mL (0-0.034)
[2016-11-07 17:00] LABS: COLOR YELLOW; LEUKOCYTE ESTERASE,URINE NEGATIVE (NEGATIVE); NITRITE,URINE NEGATIVE (NEGATIVE); PH,URINE 7.5 (5.0-7.5)
[2016-11-07] MEDS ORDERED: HYDROCODONE/APAP 5/325 TAB PO ONE (17:06)
[2016-11-07 17:07] LABS: BACTERIA 1+ /hpf (NONE SEEN); MUCUS 1+ /lpf (NONE-1+); RBC,URINE 15-25 /hpf (0-3); WBC,URINE OCCASIONAL /hpf (0-3)
[2016-11-07 17:20] VITALS: BP 142/88; PULSE 71; O2SAT 96
== END 2016-11-07 17:35 | disposition home or self-care (01) ==
LOC: CED 15:46
PROC: 3E0337Z Introduction of Electrolytic and Water Balance Substance into Peripheral Vein, Percutaneous Approach (ICD-10-PCS; principal; 2016-11-07)
DX: R07.89 Other chest pain (principal); M54.5 Low back pain; F41.9 Anxiety disorder, unspecified; R11.2 Nausea with vomiting, unspecified; E86.9 Volume depletion, unspecified
CPT/HCPCS: 71010-PO; 80048-PO; 80076-PO; 81003-PO; 81015-PO; 83690-PO; 84484-PO; 84703-PO; 85025-PO; 96374; J2405

== ENCOUNTER 2016-12-01 05:49 | Emergency (ER) | payer MEDICAID ==
[2016-12-01 05:58] VITALS: BP 139/91; PULSE 86; RESP 16; TEMP 99.3; O2SAT 96
[2016-12-01] MEDS ORDERED: ACETAMINOPHEN 500 MG TAB PO ONE (06:01)
[2016-12-01] MEDS ORDERED: CEPHALEXIN 500MG PREPACK#4 BTL TAKEHOME ONE (06:36)
--- NOTE | 2016-12-01 06:46 | EDPHY ---
H & P Time Seen by Provider: 12/01/16 06:16 HPI/ROS: Chief complaint: Right ear pain since last night History of present illness: This 46-year-old female with past medical history of rheumatoid arthritis and Suboxone for chronic pain presents to the emergency room tonight complaining of right ear pain since last night. She states it is throbbing and rates it at 8/10. Coughing and swallowing makes it worse and nothing seems to make it better. She denies fever, chills, sore throat, or discharge. She has not been around ill contacts. She does remember using a Q- tip in the ear about 4 days ago. She has not had an ear infection that she can recall in the past. REVIEW OF SYSTEMS: Constitutional: No fever, no chills. Eyes: No discharge. ENT: No sore throat. Respiratory: No cough, no shortness of breath. Cardiac: No chest pain, no palpitations. Gastrointestinal: No abdominal pain, no vomiting. Genitourinary: No hematuria. Musculoskeletal: No new back pain. Skin: No rashes. Neurological: No headache. Past Medical/Surgical History: Past medical history: includes rheumatoid arthritis, anxiety, migraine headaches, chronic back pain, cough, lumbar strain, pharyngitis, hypertension with Past surgical history: includes cholecystectomy and umbilical hernia repair Family history: the patient states both her parents had rheumatoid arthritis She is 5 para 5 First day last menstrual period 2 days ago Allergies to promethazine Medications include Suboxone, methotrexate 2.5 mg 8 tablets every Saturday, Enbrel every , citalopram 20 mg daily Social history: The patient denies tobacco products, alcohol use, marijuana use or IV drug use Primary care provider: Francia Martinez Smoking Status: Never smoked Physical Exam: General: Alert and oriented x3 in moderate discomfort HEENT: Normocephalic, atraumatic, pupils equally round reactive to light and accommodation, extraocular movements intact, oropharynx clear with Mallampati 3 , left TM normal, right TM observed after removal of cerumen to show erythema and fluid behind the tympanic membrane Neck: Supple, nontender, mild posterior cervical chain lymphadenopathy Cardiac: Normal peripheral perfusion Pulmonary: Nonlabored respirations Extremities: No swelling or deformity Neuro: Nonfocal, cranial nerves 2-12 grossly intact Constitutional: Initial Vital Signs Temperature (C) 99.3 F 12/01/16 05:55 Heart Rate 86 12/01/16 05:55 Respiratory Rate 16 12/01/16 05:55 Blood Pressure 139/91 H 12/01/16 05:55 O2 Sat (%) 96 12/01/16 05:55 O2 Delivery Mode Room Air Allergies/Adverse Reactions: promethazine Allergy (Unknown, Verified 11/07/16 15:51) Home Medications: Medication Instructions Recorded Methotrexate Sodium [Methotrexate] 2.5 mg PO Q12 02/18/14 Enbrel 01/23/15 Zolpidem Tartrate [Ambien 10 mg] 10 mg PO HS PRN #7 tablet 09/06/16 LORazepam [Ativan 1 mg (RX)] 1 mg PO Q6-8PRN PRN #7 tab 10/14/16 Citalopram 11/07/16 Cephalexin 500 mg PO TID #17 tablet 12/01/16 Suboxone 8 mg-2 mg Tablet 12/01/16 Medical Decision Making Differential Diagnosis: Differential diagnosis includes but is not limited to otitis media, otitis externa, pharyngitis, external auditory canal inflammation, no evidence for ruptured tympanic membrane or mastoiditis - Data Points Medications Given: Discontinued Medications Acetaminophen (Tylenol) 1,000 mg PO EDNOW ONE Stop: 12/01/16 06:02 Last Admin: 12/01/16 06:05 Dose: 1,000 mg Cephalexin (Keflex 500 Mg Prepack#4) 1 btl TAKEHOME EDNOW ONE PRN Reason: Protocol Stop: 12/01/16 06:37 Last Admin: 12/01/16 06:47 Dose: 1 btl Departure - Departure Disposition: Home, Routine, Self-Care Clinical Impression: Acute otitis media Qualifiers: Otitis media type: suppurative Laterality: right Recurrence: not specified as recurrent Spontaneous tympanic membrane rupture: without spontaneous rupture Qualified Code(s): H66.001 - Acute suppurative otitis media without spontaneous rupture of ear drum, right ear Condition: Good Instructions: Cephalexin (By mouth), Otitis Media (ED) Additional Instructions: Continue Tylenol as directed as needed for pain. Consider warm compresses for comfort as well. Since many medications interact with your methotrexate, you need to follow up with your primary care provider next week for follow up. Recheck sooner if symptoms worsen. Referrals: Patient,NotPresent [Primary Care Provider] - As per Instructions Francia Martinez, [employer]ING ANALYST [Non Staff and Non MD] - 5-7 days, call for appt. Prescriptions: Cephalexin 500 mg PO TID #17 tablet
== END 2016-12-01 06:49 | disposition home or self-care (01) ==
LOC: CED 05:49
DX: H66.001 Acute suppurative otitis media without spontaneous rupture of ear drum, right ear (principal)

== ENCOUNTER 2017-09-04 18:10 | Emergency (ER) | payer OTHER, MEDICAID ==
[2017-09-04] MEDS ORDERED: ACETAMINOPHEN 500 MG TAB PO ONE (18:59)
[2017-09-04] MEDS ORDERED: traMADol 50 MG TAB PO ONE ×2 (19:02→20:40)
[2017-09-04] MEDS ORDERED: predniSONE 20 MG TAB PO ONE (20:39)
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
[2017-09-04 20:58] VITALS: BP 152/89
== END 2017-09-04 20:57 | disposition home or self-care (01) ==
LOC: CED 18:10
DX: S60.222A Contusion of left hand, initial encounter (principal); M06.9 Rheumatoid arthritis, unspecified; V18.0XXA Pedal cycle driver injured in noncollision transport accident in nontraffic accident, initial encounter; Y92.410 Unspecified street and highway as the place of occurrence of the external cause; Y99.8 Other external cause status; Y93.55 Activity, bike riding
CPT/HCPCS: 73130; 99284; J7512

== ENCOUNTER 2018-02-03 05:35 | Emergency (ER) | payer OTHER, MEDICAID ==
[2018-02-03 05:47] VITALS: BP 145/87
[2018-02-03] MEDS ORDERED: CLINDAMYCIN 150MG PREPACK#6 BTL TAKEHOME ONE (06:22)
--- NOTE | 2018-02-03 06:22 | EDPHY ---
H & P Time Seen by Provider: 02/03/18 06:14 HPI/ROS: CHIEF COMPLAINT: Right ear and mandibular pain HISTORY OF PRESENT ILLNESS: Complex 48-year-old female presents with 6 hr of pain to the right jaw going into the right ear such that she cannot sleep. She has tried some ibuprofen for this and has not really helped. Old charts reviewed. She has been on Suboxone in the past. She relates that she has had no antecedent URI. There has also been no allergy symptoms such as stuffy nose or itchy eyes or scratchy throat. Beginning last night at midnight she started a pain in the right ear. She denies uses Q-tips. She did not have any water in the ear. This is not affect her balance. She has had no nausea or diplopia. There has been no discharge. Of note, is that she has extremely poor dentition, as a has a full mouth extraction pending with dental implants later. Discharge no Trismus no Trauma no REVIEW OF SYSTEMS: Gen: No fevers or chills. Respiratory: No cough, no dyspnea. Smoking Status: Never smoked Physical Exam: General: Well-developed well-nourished. Nontoxic. Voice is normal HEENT: Membranes moist. No foul odor. There is no trismus. There is no drainage within the mouth nor pointing at the alveolar ridge, but with little is left of any of the teeth on the right lower jaw is approximately the right bicuspid. This is below the gumline and is in fact inflamed on the perimeter. The area of the dental ridge is tender to the touch however, the floor of mouth is nontender nor is there any erythema or edema or induration. . There is extensive dental decay. Submandibular adenopathy is not noted. Constitutional: Initial Vital Signs Temperature (C) 37 C 02/03/18 05:44 Heart Rate 90 02/03/18 05:44 Respiratory Rate 16 02/03/18 05:44 Blood Pressure 145/87 H 02/03/18 05:44 O2 Sat (%) 96 02/03/18 05:44 O2 Delivery Mode Room Air Allergies/Adverse Reactions: promethazine Allergy (Unknown, Verified 09/04/17 18:27) Home Medications: Medication Instructions Recorded Methotrexate Sodium [Methotrexate] 2.5 mg PO Q12 02/18/14 Zolpidem Tartrate [Ambien 10 mg] 10 mg PO HS PRN #7 tablet 09/06/16 Citalopram 11/07/16 Lamotrigine 09/04/17 Clindamycin 300 mg PO QID 10 Days cap 02/03/18 Humira 02/03/18 Medical Decision Making ED Course/Re-evaluation: Initially contemplated putting on penicillin as that is the drug of choice or dental problems. However evidently there is a potential renal tubular drug interaction of penicillin blocking metabolism of methotrexate thus leading to methotrexate toxicity. That has not seen in the setting of clindamycin thus she will be prescribed such. Given her prior history of Suboxone use, I would advise the combination of Tylenol and Advil for her pain. Differential Diagnosis: Diagnostic considerations include, but are not limited to, the following: Abscess, facial abscess, facial cellulitis, Jayy's Angina, Retropharyngeal abscess, deep space facial infection, dental caries . Departure - Departure Disposition: Home, Routine, Self-Care Clinical Impression: Dental abscess Condition: Good Instructions: Clindamycin (By mouth), Dental Abscess (ED) Additional Instructions: Tylenol and Advil works well together the combination: Tylenol 650 or 500 mg and Advil 400 mg both, every 6 hours as needed for the pain. While on the antibiotic for the next 10 days do take some yogurt with active cultures to keep the bowel bacteria and balance. Prescriptions: Clindamycin 300 mg PO QID 10 Days cap
== END 2018-02-03 06:34 | disposition home or self-care (01) ==
LOC: CED 05:35
DX: K04.7 Periapical abscess without sinus (principal); K02.9 Dental caries, unspecified; Z79.899 Other long term (current) drug therapy